=== PATIENT | male | born 1975 | race Caucasian/White ===

== ENCOUNTER 2016-11-02 10:50 | Emergency (ER) | payer MEDICAID ==
[~2016-11-02] VITALS: Ht 152.4 cm; Wt 68.0 kg
[~2016-11-02 10:50] MED LIST: METH5TAB2 PO
[2016-11-02] MEDS ORDERED: KETOROLAC 60MG/2ML VIAL IM ONE (12:15)
[2016-11-02 12:27] VITALS: BP 159/101
== END 2016-11-02 17:48 | disposition left against medical advice (07) ==
LOC: ER 10:51
DX: S92.001A Unspecified fracture of right calcaneus, initial encounter for closed fracture (principal); S93.401A Sprain of unspecified ligament of right ankle, initial encounter; W11.XXXA Fall on and from ladder, initial encounter; Y93.89 Activity, other specified; Y99.8 Other external cause status; Y92.89 Other specified places as the place of occurrence of the external cause
CPT/HCPCS: 72100; 73610; 73630; 73700; 96372; 99284; J1885

== ENCOUNTER 2017-10-14 08:45 | Emergency (ER) | payer MEDICAID, OTHER ==
[~2017-10-14] VITALS: Ht 152.4 cm; Wt 64.0 kg
[2017-10-14 09:09] VITALS: BP 137/89
== END 2017-10-14 14:43 | disposition left against medical advice (07) ==
LOC: ER 12:12
DX: Z53.21 Procedure and treatment not carried out due to patient leaving prior to being seen by health care provider (principal)

== ENCOUNTER 2017-10-15 09:28 | Emergency (ER) | payer MEDICAID | END 2017-10-15 10:36 | disposition left against medical advice (07) | LOC: ER 10:31 | DX: Z53.21 Procedure and treatment not carried out due to patient leaving prior to being seen by health care provider (principal) ==

== ENCOUNTER 2017-12-07 12:37 | Emergency (ER) | payer MEDICAID, OTHER ==
[~2017-12-07] VITALS: Ht 165.1 cm; Wt 65.0 kg
[2017-12-07 13:09] VITALS: BP 121/75
== END 2017-12-07 18:17 | disposition left against medical advice (07) ==
LOC: ER 13:31
DX: R20.0 Anesthesia of skin (principal); Z53.21 Procedure and treatment not carried out due to patient leaving prior to being seen by health care provider

== ENCOUNTER 2017-12-21 04:23 | Emergency (ER) | payer OTHER ==
[~2017-12-21] VITALS: Ht 152.4 cm; Wt 58.0 kg
[2017-12-21 07:06] LABS: BASOPHILS % 2.7 % (0.0-2.0); EOSINOPHILS % 0.3 % (0.0-5.0); HEMATOCRIT. 39.8 % (42.0-52.0); HEMOGLOBIN. 13.6 g/dL (14.0-18.0); LYMPHOCYTES % 19.5 % (20.0-50.0); MEAN CORPUSCULAR HEMOGLOBIN 32.4 pg (28.0-32.0); MEAN CORPUSCULAR VOLUME 94.5 fL (80.0-94.0); MEAN PLATELET VOLUME 8.7 fl (7.4-10.4); NEUTROPHILS % 66.5 % (40.0-76.0); PLATELET 108 x1000/uL (130-400); RED BLOOD CELL COUNT 4.21 mill/uL (4.7-6.1); RED CELL DISTRIBUTION WIDTH 14.8 % (11.6-14.6)
[2017-12-21 07:13] LABS: CHLORIDE 103 mEq/L (98-107); INR 1.1
[2017-12-21] MEDS ORDERED: KETOROLAC 15MG/ML VIAL IV ONE (10:00)
[2017-12-21] MEDS ORDERED: SODIUM CHLORIDE 0.9% 1,000 ML IV ONE (12:30)
[2017-12-21] MEDS ORDERED: LORAZEPAM 2MG/ML CPJ IV ONE (12:30)
[2017-12-21 13:57] VITALS: BP 131/98
== END 2017-12-21 14:00 | disposition home or self-care (01) ==
LOC: ER 04:23
DX: S50.852A Superficial foreign body of left forearm, initial encounter (principal); F10.239 Alcohol dependence with withdrawal, unspecified; K70.9 Alcoholic liver disease, unspecified; D64.9 Anemia, unspecified; I10 Essential (primary) hypertension; F12.90 Cannabis use, unspecified, uncomplicated; M79.1 Myalgia; R50.9 Fever, unspecified; R74.0 Nonspecific elevation of levels of transaminase and lactic acid dehydrogenase [LDH]; R06.02 Shortness of breath; X58.XXXA Exposure to other specified factors, initial encounter; Y93.89 Activity, other specified; Y92.89 Other specified places as the place of occurrence of the external cause; Y99.8 Other external cause status
CPT/HCPCS: 36415; 71045; 80053; 83880; 84484; 85025; 85610; 93005; 93971; 96361; 96374; 96375; 99285; J1885; J2060; J7030; Z7610

== ENCOUNTER 2018-10-09 09:24 | Emergency (ER) | payer MEDICAID, OTHER ==
[~2018-10-09] VITALS: Ht 152.4 cm; Wt 60.0 kg
[2018-10-09 10:02] VITALS: BP 117/76
== END 2018-10-09 10:46 | disposition left against medical advice (07) ==
LOC: ER 09:24
DX: M79.661 Pain in right lower leg (principal); I10 Essential (primary) hypertension
CPT/HCPCS: 99281

== ENCOUNTER 2019-09-13 04:16 | Emergency (ER) | payer MEDICAID, OTHER ==
[~2019-09-13] VITALS: Ht 154.9 cm; Wt 59.0 kg
[2019-09-13 04:24] VITALS: BP 146/101
== END 2019-09-13 06:37 | disposition left against medical advice (07) ==
LOC: ER 04:16
DX: Z53.21 Procedure and treatment not carried out due to patient leaving prior to being seen by health care provider (principal); I10 Essential (primary) hypertension

== ENCOUNTER 2019-12-03 10:08 | Emergency (ER) | payer MEDICAID ==
[~2019-12-03] VITALS: Ht 154.9 cm; Wt 61.0 kg
[2019-12-03] MEDS ORDERED: MORPHINE SULFATE 4 MG/ML CPJ (NOT FOR IM USE) IV STA (10:32)
[2019-12-03] MEDS ORDERED: ONDANSETRON HCL 4MG/2ML INJ IV STA (10:32)
[2019-12-03] MEDS ORDERED: SODIUM CHLORIDE 0.9% 1,000 ML IV ONE (10:32)
[2019-12-03] MEDS ORDERED: ETOMIDATE 2MG/ML 10ML VIAL IV ONE (11:30)
[2019-12-03 11:32] LABS: CLARITY URINE CLEAR (CLEAR); COLOR URINE YELLOW (YELLOW); KETONES URINE NEGATIVE (NEGATIVE); LEUKOCYTE ESTERASE URINE NEGATIVE (NEGATIVE); NITRITE URINE NEGATIVE (NEGATIVE); OCCULT BLOOD URINE TRACE (NEGATIVE); PROTEIN URINE 2+ (NEGATIVE); SPECIFIC GRAVITY URINE 1.008 (1.005-1.030)
[2019-12-03 11:32] LABS: EOSINOPHILS % 0.1 % (0.0-5.0); HEMATOCRIT. 37.6 % (42.0-52.0); HEMOGLOBIN. 12.6 g/dL (14.0-18.0); LYMPHOCYTES % 8.2 % (20.0-50.0); MEAN CORPUSCULAR HEMOGLOBIN 30.6 pg (28.0-32.0); MEAN CORPUSCULAR VOLUME 91.2 fL (80.0-94.0); MEAN PLATELET VOLUME 7.6 fl (7.4-10.4); NEUTROPHILS % 80.7 % (40.0-76.0); PLATELET 186 x1000/uL (130-400); RED BLOOD CELL COUNT 4.13 mill/uL (4.7-6.1); RED CELL DISTRIBUTION WIDTH 14.9 % (11.6-14.6)
[2019-12-03 11:40] LABS: CHLORIDE 105 mEq/L (98-107); PARTIAL THROMBOPLASTIN TIME 31.5 sec (23.4-31.0); PROTHROMBIN TIME 11.1 sec (9.6-11.0)
[2019-12-03 11:46] LABS: *AMPHETAMINES SCREEN URINE NEGATIVE (NEGATIVE); *BARBITURATES SCREEN URINE NEGATIVE (NEGATIVE); *BENZODIAZEPINES SCREEN URINE NEGATIVE (NEGATIVE); *COCAINE SCREEN URINE NEGATIVE (NEGATIVE); METHADONE URINE SCREEN NEGATIVE (NEGATIVE); PHENCYCLIDINE URINE SCREEN NEGATIVE (NEGATIVE)
[2019-12-03 11:47] LABS: CANNABINOID URINE SCREEN NEGATIVE (NEGATIVE)
[2019-12-03 11:48] LABS: OPIATES URINE SCREEN NEGATIVE (NEGATIVE)
[2019-12-03] MEDS ORDERED: AMPICILLIN SOD/SULBACTAM NA 3 G in SODIUM CHLORIDE 0.9% 100 ML IV STA (12:13)
[2019-12-03] MEDS ORDERED: CLINDAMYCIN 600 MG in DEXTROSE 5% WATER 50 ML IV ONE (12:15)
[2019-12-03 15:30] VITALS: BP 111/69
== END 2019-12-03 15:30 | disposition home or self-care (01) ==
LOC: ER 10:35 → CANBEDREQ 17:54
DX: S30.852A Superficial foreign body of penis, initial encounter (principal); N48.22 Cellulitis of corpus cavernosum and penis; I10 Essential (primary) hypertension; W45.8XXA Other foreign body or object entering through skin, initial encounter; Y93.89 Activity, other specified; Y92.018 Other place in single-family (private) house as the place of occurrence of the external cause
CPT/HCPCS: 36415; 80053; 80305; 81003; 85025; 85610; 85730; 96365; 96367; 96375; 99152; 99285; J0295; J2270; J2405; J3490; J7030; J7050; J7060; Z7610